=== PATIENT | male | born 1990 | race Hispanic/Latino ===

== ENCOUNTER 2017-02-17 18:54 | Emergency (ER) | payer SELFPAY ==
[2017-02-17 18:55] VITALS: BMI 23.5
[2017-02-17 18:57] VITALS: BP 136/82; PULSE 84; RESP 18; TEMP 97.5; O2SAT 98
--- NOTE | 2017-02-17 19:57 | ED PDOC ---
HPI: Psych/Substance Abuse Time Seen by Provider: 02/17/17 18:57 Chief Complaint (Nursing): Medical Clearance Chief Complaint (Provider): Clearance for incarceration History Per: Patient, Other Additional Complaint(s): 26 yo male, no PMH (on chart review Pt has a PMH of Asthma and Schizophrenia), presents to ED for in order to undergo medical and psychiatric clearance prior to incarceration. Pt offers no physical complaints. no homicidal or suicidal ideations.Denies alcohol or drug use. Past Medical History Reviewed: Historical Data, Nursing Documentation, Vital Signs Vital Signs: Last Vital Signs Temp 97.5 F L 02/17/17 18:55 Pulse 84 02/17/17 18:55 Resp 18 02/17/17 18:55 BP 136/82 02/17/17 18:55 Pulse Ox 98 02/17/17 18:55 - Medical History PMH: Asthma, Depression, Paranoia, Schizophrenia Denies: Diabetes, Hepatitis, HIV, HTN, Chronic Kidney Disease, Seizures, Sexually Transmitted Disease - Family History Family History: States: Unknown Family Hx - Immunization History Hx Tetanus Toxoid Vaccination: No Hx Influenza Vaccination: No Hx Pneumococcal Vaccination: No - Home Medications Home Medications: Ambulatory Orders Medication Instructions Recorded Benztropine [Cogentin] 1 mg PO QPM #30 tab 02/17/16 risperiDONE [RisperDAL Tab] 3 mg PO QPM #30 tab 02/17/16 - Allergies Allergies/Adverse Reactions: Allergies Allergy/AdvReac Type Severity Reaction Status Date / Time shrimp Allergy Verified 02/06/16 20:47 Review of Systems ROS Statement: Except As Marked, All Systems Reviewed And Found Negative () Physical Exam - Reviewed Nursing Documentation Reviewed: Yes Vital Signs Reviewed: Yes - Physical Exam Appears: Positive for: Well, Non-toxic, No Acute Distress Head Exam: Positive for: ATRAUMATIC, NORMAL INSPECTION, NORMOCEPHALIC Skin: Positive for: Normal Color, Warm, DRY Eye Exam: Positive for: EOMI, Normal appearance, PERRL ENT: Positive for: Normal ENT Inspection Neck: Positive for: Normal, Painless ROM Cardiovascular/Chest: Positive for: Regular Rate, Rhythm Respiratory: Positive for: CNT, Normal Breath Sounds Gastrointestinal/Abdominal: Positive for: Normal Exam, Bowel Sounds, Soft Back: Positive for: Normal Inspection Extremity: Positive for: Normal ROM Neurologic/Psych: Positive for: Alert, Oriented - ECG O2 Sat by Pulse Oximetry: 98 Medical Decision Making Medical Decision Making: Crisis made aware- underwent evaluation. see note. Disposition - Clinical Impression Clinical Impression: Medical clearance for incarceration - Patient ED Disposition Is Patient to be Admitted: No - Disposition Disposition: Routine/Home Disposition Time: 20:42 Condition: STABLE Additional Instructions: Patient is medically and psychiatrically cleared for incarceration Instructions: Normal Exam (ED) Forms: [employer] (Greek) - POA Present On Arrival: None
== END 2017-02-17 20:56 | disposition home or self-care (01) ==
LOC: H.ER 18:54
DX: Z02.89 Encounter for other administrative examinations (principal)

== ENCOUNTER 2017-07-18 08:41 | Emergency (ER) | payer OTHER ==
--- NOTE | 2017-07-18 09:21 | ED PDOC ---
HPI: Psych/Substance Abuse Time Seen by Provider: 07/18/17 09:17 Chief Complaint (Nursing): Psychiatric Evaluation History Per: Patient Onset/Duration Of Symptoms: Days (2) Current Symptoms Are (Timing): Still Present Suicide/Self Injury Attempted (Context): None Modifying Factor(s): None Severity: Moderate Associated Symptoms: Depression, Suicidal Thoughts, Suicidal Plan Additional Complaint(s): Hearing voices telling him to kill himself plan to jump in front of bus. Sxs x 2 days. Not taking meds. Past Medical History Vital Signs: Last Vital Signs Temp 97 F L 07/18/17 08:54 Pulse 75 07/18/17 08:54 Resp 16 07/18/17 08:54 BP 122/81 07/18/17 08:54 Pulse Ox 99 07/18/17 08:54 - Medical History PMH: Schizophrenia - Family History Family History: States: Unknown Family Hx - Immunization History Hx Tetanus Toxoid Vaccination: No Hx Influenza Vaccination: No Hx Pneumococcal Vaccination: No - Allergies Allergies/Adverse Reactions: Allergies Allergy/AdvReac Type Severity Reaction Status Date / Time No Known Allergies Allergy Verified 07/18/17 08:54 Review of Systems ROS Statement: Except As Marked, All Systems Reviewed And Found Negative Psych: Positive for: Depression, Suicidal ideation Physical Exam - Reviewed Nursing Documentation Reviewed: Yes Vital Signs Reviewed: Yes - Physical Exam Appears: Positive for: Non-toxic, No Acute Distress Head Exam: Positive for: ATRAUMATIC, NORMAL INSPECTION, NORMOCEPHALIC Skin: Positive for: Normal Color, Warm, DRY Eye Exam: Positive for: EOMI, Normal appearance, PERRL ENT: Positive for: Normal ENT Inspection Neck: Positive for: Normal, Painless ROM Cardiovascular/Chest: Positive for: Regular Rate, Rhythm Respiratory: Positive for: CNT, Normal Breath Sounds Gastrointestinal/Abdominal: Positive for: Normal Exam, Bowel Sounds, Soft Back: Positive for: Normal Inspection Extremity: Positive for: Normal ROM Neurologic/Psych: Positive for: Alert, Oriented - Laboratory Results Result Diagrams: 07/18/17 09:40 07/18/17 09:40 - ECG O2 Sat by Pulse Oximetry: 99 Medical Decision Making Medical Decision Making: Evaluated by Crisis and discussed with psychiatry. They do not believe that pt is suicidal at present. Disposition - Clinical Impression Clinical Impression: Schizophrenia - Patient ED Disposition Is Patient to be Admitted: No - Disposition [facility]errals: [facility] [Outside] Disposition: Routine/Home Disposition Time: 11:07 Condition: FAIR Instructions: Schizophrenia Forms: [employer] ([place])
[2017-07-18 09:57] LABS: BASO % 0.7 % (0.0-2.0); EOS # 0.1 K/uL (0.0-0.7); EOS % 2.3 % (0.0-4.0); HEMOGLOBIN 13.9 g/dL (12.0-18.0); LYMPH # 1.8 K/uL (1.0-4.3); LYMPH % 31.6 % (20.0-40.0); MEAN CELL VOLUME 87.5 fl (80.0-94.0); MEAN CORPUSCULAR HEMOGLOBIN 29.3 pg (27.0-31.0); MEAN CORPUSCULAR HGB CONC 33.5 g/dL (33.0-37.0); MEAN PLATELET VOLUME 9.4 fl (7.2-11.7); MONO # 0.4 K/uL (0.0-0.8); NEUT # 3.2 K/uL (1.8-7.0); NEUT % 57.4 % (50.0-75.0); NRBC % 0.1 % (0.0-0.0); RBC 4.76 Mil/uL (4.40-5.90); RED CELL DISTRIBUTION WIDTH 13.2 % (11.5-14.5); WHITE BLOOD COUNT 5.6 K/uL (4.8-10.8)
[2017-07-18 10:12] LABS: ALB/GLOB RATIO 1.3 (1.0-2.1); ALBUMIN 4.3 g/dL (3.5-5.0); ALT/SGPT 28 U/L (21-72); AST/SGOT 17 U/L (17-59); BLOOD UREA NITROGEN 15 mg/dl (9-20); CALCIUM 9.2 mg/dL (8.4-10.2); GFR AFRICAN-AMERICAN > 60; GFR NON-AFRICAN AMERICAN > 60
--- NOTE | 2017-07-18 10:24 | RAD ---
HISTORY: cough COMPARISON: No prior. FINDINGS: LUNGS: No acute infiltrate identified bilaterally. Limited elevation left hemidiaphragm is noted. PLEURA: No significant pleural effusion identified, no pneumothorax apparent. CARDIOVASCULAR: Normal. OSSEOUS STRUCTURES: No significant abnormalities. VISUALIZED UPPER ABDOMEN: Normal. OTHER FINDINGS: None. IMPRESSION: No acute infiltrate, pleural effusion or pneumothorax bilaterally. Limited elevation left hemidiaphragm noted.
[2017-07-18 11:14] VITALS: BP 125/68; PULSE 82; RESP 18; TEMP 98; O2SAT 100
--- NOTE | 2017-07-18 14:25 | CARD ---
APPROVED REPORT EKG Measurement Heart [id number] <Conclusion> Sinus bradycardia Otherwise normal ECG
== END 2017-07-18 11:21 | disposition home or self-care (01) ==
LOC: EDBD 08:41 → H.ER 08:41 → MERGE 08:41 → H.ER 11:21
DX: F20.9 Schizophrenia, unspecified (principal)

== ENCOUNTER 2017-07-22 07:19 | Inpatient (IN) | payer MEDICAID, OTHER ==
[2017-07-22 07:37] VITALS: BMI 30.9
--- NOTE | 2017-07-22 07:39 | ED PDOC ---
HPI: Psych/Substance Abuse Time Seen by Provider: 07/22/17 07:24 Chief Complaint (Nursing): Psychiatric Evaluation History Per: Patient Onset/Duration Of Symptoms: Days (3) Current Symptoms Are (Timing): Still Present Suicide/Self Injury Attempted (Context): None Modifying Factor(s): None Severity: Mild Associated Symptoms: Suicidal Thoughts Additional Complaint(s): Hearing voices telling him to kill himself. Seen here 4 days ago with plan then to jump in front of bus. Past Medical History - Medical History PMH: Asthma, Depression, Paranoia, Schizophrenia Denies: Arthritis, Diabetes, Fractures, Hepatitis, HIV, HTN, Hyperthyroidism , Hypothyroidism, Osteoporosis, Chronic Kidney Disease, Rheumatoid Arthritis, Seizures, Sexually Transmitted Disease - Family History Family History: States: Unknown Family Hx - Immunization History Hx Tetanus Toxoid Vaccination: No Hx Influenza Vaccination: No Hx Pneumococcal Vaccination: No - Home Medications Home Medications: Ambulatory Orders Medication Instructions Recorded Benztropine [Cogentin] 1 mg PO QPM #30 tab 02/17/16 risperiDONE [RisperDAL Tab] 3 mg PO QPM #30 tab 02/17/16 Paliperidone Palmitate [Invega 234 mg IM ONCE #1 syr 07/04/17 Sustenna] Benztropine [Cogentin] 1 mg PO BID #60 tab 07/17/17 Escitalopram [Lexapro] 20 mg PO DAILY #30 tab 07/17/17 Levothyroxine [Synthroid] 50 mcg PO DAILY@0630 #30 tab 07/17/17 Mirtazapine [Remeron] 30 mg PO HS #30 tab 07/17/17 fluPHENAZine [Prolixin] 10 mg PO BID #60 tab 07/17/17 - Allergies Allergies/Adverse Reactions: Allergies Allergy/AdvReac Type Severity Reaction Status Date / Time shrimp Allergy Verified 06/23/17 22:26 Review of Systems ROS Statement: Except As Marked, All Systems Reviewed And Found Negative Psych: Positive for: Depression, Suicidal ideation Physical Exam - Reviewed Nursing Documentation Reviewed: Yes Vital Signs Reviewed: Yes - Physical Exam Appears: Positive for: Non-toxic, No Acute Distress Head Exam: Positive for: ATRAUMATIC, NORMAL INSPECTION, NORMOCEPHALIC Skin: Positive for: Normal Color, Warm, DRY Eye Exam: Positive for: EOMI, Normal appearance, PERRL ENT: Positive for: Normal ENT Inspection Neck: Positive for: Normal, Painless ROM Cardiovascular/Chest: Positive for: Regular Rate, Rhythm Respiratory: Positive for: CNT, Normal Breath Sounds Gastrointestinal/Abdominal: Positive for: Normal Exam, Bowel Sounds, Soft Back: Positive for: Normal Inspection Extremity: Positive for: Normal ROM Neurologic/Psych: Positive for: Alert, Oriented Medical Decision Making Medical Decision Making: Medically stable for psychiatric admission Disposition - Clinical Impression Clinical Impression: Schizophrenia - Patient ED Disposition Is Patient to be Admitted: Yes - Disposition Disposition Time: 08:49 Condition: FAIR Forms: [employer] (Spanish) - Pt Status Changed To: Hospital Disposition Of: Inpatient - Admit Certification Admit to Inpatient:: After my assessment, the patient will require hospitalization for at least two midnights. This is because of the severity of symptoms shown, intensity of services needed, and/or the medical risk in this patient being treated as an outpatient. - POA Present On Arrival: None
[2017-07-22 07:40] VITALS: O2SAT 98
[2017-07-22 09:56] LABS: BARBITURATES, UR NEGATIVE (NEGATIVE); BENZODIAZEPINES, UR NEGATIVE (NEGATIVE); OPIATES, UR NEGATIVE (NEGATIVE); PHENCYCLIDINE, UR NEGATIVE (NEGATIVE)
[2017-07-22] MEDS ORDERED: DiphenhydrAMINE 50 mg/ml Inj IM PRN (11:35)
[2017-07-22] MEDS ORDERED: Alum-Mag Hydrox-Simethicone Susp (30 mL) PO PRN (11:35)
[2017-07-22] MEDS ORDERED: Magnesium Hydroxide Susp 30 ml UD PO PRN (11:35)
--- NOTE | 2017-07-22 11:38 | PCM.BM ---
Treatment Plan Problems - Problems identified on initial assessmt Problem 1 Date Initiated: 07/22/17 Time Initiated: 11:39 Assessment reference: NA Status: Active medication nonadherence Date Initiated: 07/22/17 Time Initiated: 11:53 Assessment reference: NA Status: Active Problem 2 Date Initiated: 07/22/17 Assessment reference: NA Status: Active command/auditory hallucinations Date Initiated: 07/22/17 Assessment reference: NA Status: Active Treatment assets and liabiliti Patient Assests: adapts well, cooperative, resourceful, self-reliant, ADL independent, negotiates basic needs Patient Liabilities: live alone, financial problems, poor support system - Milieu Protocol Maintain good personal hygiene: daily Encourage regular showers, daily Remind patient to perform daily oral care, other Assist patient to perform ADL's Conduct patient checks and document Observation sheet: Q15 minutes Maintain personal safety: every shift Educate patient to report safety concerns to staff, every shift Monitor environment for contraband/sharps Medication safety: Monitor for expected outcome, potential side effects: every shift, Assess barriers to learning: every shift, Assess readiness for medication education: every shift
--- NOTE | 2017-07-22 11:47 | PCM.PSYCH ---
Initial Psychiatric Evaluation - Initial Psychiatric Evaluation Type of Admission: Voluntary Legal Status: Capacity Chief Complaint (in patient's own words): "I was having suicidal thoughts." Patient's Reaction to Hospitalization: HPI: 26 year old male self referred to this ED secondary to command auditory hallucinations and suicidal ideations with a plan to bang his head until he becomes unconscious. Patient also reports that if he had access to a weapon, he would use it to harm himself. He reports CAH to harm himself. No VH/HI/paranoia/delusions. Pt was recently admitted to [facility] from 06/24 -07/17, but was not complaint with medications after discharge. He reports feeling anxious and depressed. He reports poor sleep and normal appetite. PPHx: Pt has multiple admissions in [facility] and [facility]. Last admission was in [facility] from 06/24/2017-07/17/2017 Pt currently noncompliant with medications. Pt was d/c from [facility] with a prescription for Invega Sustenna 234 mg IM, Congentin 1mg PO BID, Lexapro 20mg PO Daily, Prolixin 10mg PO BID, Synthroid 50mg mg PO Daily, Remeron 30mg PO HS PMH: asthma (last attack in 1999), hyperthyroidism, Herpes (diagnosed in 2012) PSH: tonsillectomy at age 2-3 (no complications) Family History: no known history of heart disease, DM, HTN; no family history of mental illness Allergies: Denies drug allergies; has allergy to shrimp Social History: currently homeless (lives w/ a "friend" he will not provide contact info for); denies drugs/etoh/cig use. Current Medications: Active Medications Generic Name Dose Route Start Last Admin Trade Name Freq PRN Reason Stop Dose Admin Acetaminophen 650 mg 07/22/17 11:35 Tylenol 325mg Tab PO Q4 PRN Pain, moderate (4-7) Al Hydrox/Mg Hydrox/Simethicone 30 ml 07/22/17 11:35 Maalox Plus 30 Ml PO Q4 PRN Dyspepsia Benztropine Mesylate 1 mg 07/22/17 11:40 Cogentin PO BID DIOGENES Diphenhydramine HCl 50 mg 07/22/17 11:35 Benadryl IM Q6 PRN Extrapyramidal S/S Unable PO Diphenhydramine HCl 50 mg 07/22/17 11:35 Benadryl PO Q6 PRN Extrapyramidal Symptoms Escitalopram Oxalate 20 mg 07/22/17 11:45 Lexapro PO DAILY [facility] Fluphenazine HCl 10 mg 07/22/17 11:40 Prolixin PO BID [facility] Haloperidol 5 mg 07/22/17 11:35 Haldol PO Q4 PRN Agitation Haloperidol Lactate 5 mg 07/22/17 11:35 Haldol IM Q4 PRN Agitation, Unable to Take PO Levothyroxine Sodium 50 mcg 07/22/17 11:41 Synthroid PO DAILY@0630 [facility] Lorazepam 2 mg 07/22/17 11:35 Ativan IM Q4 PRN Anxiety/Agitation,Unable PO Lorazepam 2 mg 07/22/17 11:35 Ativan PO Q4 PRN Anxiety/Agitation Magnesium Hydroxide 30 ml 07/22/17 11:35 Milk Of Magnesia PO HS PRN Constipation Mirtazapine 30 mg 07/22/17 22:00 Remeron PO HS [facility] Past Psychiatric History - Past Psychiatric History Previous Treatment History: Inpatient Pertinent Medical Hx (Current Medical&Sleep Prob, Allergies): Allergies Allergy/AdvReac Type Severity Reaction Status Date / Time shrimp Allergy Verified 06/23/17 22:26 Benztropine [Cogentin] 1 mg PO QPM #30 tab 02/17/16 risperiDONE [RisperDAL Tab] 3 mg PO QPM #30 tab 02/17/16 Paliperidone Palmitate [Invega Sustenna] 234 mg IM ONCE #1 syr 07/04/17 Benztropine [Cogentin] 1 mg PO BID #60 tab 07/17/17 Escitalopram [Lexapro] 20 mg PO DAILY #30 tab 07/17/17 Levothyroxine [Synthroid] 50 mcg PO DAILY@0630 #30 tab 07/17/17 Mirtazapine [Remeron] 30 mg PO HS #30 tab 07/17/17 fluPHENAZine [Prolixin] 10 mg PO BID #60 tab 07/17/17 Review of Systems - Psychiatric Psychiatric: As Per HPI, Abnormal Sleep Pattern, Anhedonia, Anxiety, Auditory Hallucinations, Behavioral Changes, Depression, Difficulty Concentrating, Hallucinations, Hopelessness, Suicidal Ideation Mental Status Examination - Personal Presentation Personal Presentation: Looks stated age - Affect Affect: Constricted - Motor Activity Motor Activity: Calm - Reliability in Providing Information Reliability in Providing Information: Fair - Speech Speech: Organized, Coherent - Mood Mood: Depressed, Anxious - Formal Thought Process Formal Thought Process: Hallucinations - Hallucinations/Delusions Hallucinations: Auditory - Obsessions/Compulsions Obsessions: No Compulsions: No - Cognitive Functions Orientation: Person, Place, Situation, Time Sensorium: Alert Attention/Concentration: Attentive Estimate of Intelligence: Average Judgement: Intact, as evidence by: Insight regarding need for hospitalization Memory: Recent intact, as evidence by: Ability to recall events of the day, Remote intact, as evidenced by: Abilit to recall sig. life events, Remote intact , as evidenced by: Ability to recall historical events - Risk Risk: Suicidal, Diminished functioning - Strength & Assets Inventory Strength & Assets Inventory: Cooperative - Limitations Limitations: Other (Poverty, poor social support) DSM 5 DX - DSM 5 DSM 5 Diagnosis: Schizoaffective Disorder - Recommended/Plan of Treatment Treatment Recommendations and Plan of Treatment: Schizoaffective Disorder -Admit to psychiatry unit -No 1:1 indicated at this time, patient is able to contract for safety -Restart Lexapro, Cogentin, Prolixin, Remeron -Medicine consult -Individual and group therapy -Psychoeducation Projected ELOS: 5-7 days Discharge Plan and Discharge Criteria: Discharge when patient is psychiatrically stable - Smoking Cessation Smoking Cessation Initiated: No Reason for not providing: Not indicated
[2017-07-22] MEDS: Levothyroxine 50 MCG TAB PO SCH (14:49)
--- NOTE | 2017-07-22 15:33 | CP.PCM.CON ---
History of Present Illness - History of Present Illness History of Present Illness: 26 yo male with history of Asthma and Hypothyroidism admitted to psyche unit because of suicidal ideation. Patient was recently discharged from [facility] psyche unit on 07/17/2017 after staying for 33 days managed for the same complaint. Review of Systems - Review of Systems All systems: reviewed and no additional remarkable complaints except (aside from those mentioned above, 14 point system review were negative by me) Past Patient History - Infectious Disease Hx of Infectious Diseases: None - Tetanus Immunizations Tetanus Immunization: Unknown - Past Social History Smoking Status: Never Smoked Alcohol: None Drugs: Denies - CARDIAC Hx Hypertension: No - PULMONARY Hx Asthma: Yes - NEUROLOGICAL Hx Seizures: No - HEENT Hx HEENT Problems: No Hx Cataracts: No Hx Deafness: No Hx Difficulty Chewing: No Hx Epistaxis: No Hx Glaucoma: No Hx Macular Degeneration: No - RENAL Hx Chronic Kidney Disease: No - ENDOCRINE/METABOLIC Hx Hyperthyroidism: No Hx Hypothyroidism: Yes (on Levothyroxine) - HEMATOLOGICAL/ONCOLOGICAL Hx Human Immunodeficiency Virus (HIV): No - INTEGUMENTARY Hx Dermatological Problems: No Hx Basil Cell: No Hx Bob: No Hx Cellulitis: No Hx Eczema: No Hx Melanoma: No Hx Psoriasis: No Hx Squamous Cell: No - MUSCULOSKELETAL/RHEUMATOLOGICAL Hx Arthritis: No Hx Fractures: No Hx Osteoporosis: No Hx Rheumatoid Arthritis: No - GASTROINTESTINAL Hx Gastrointestinal Disorders: No Hx Colostomy: No Hx Gastroesophageal Reflux: No Hx Ileostomy: No Hx Liver Failure: No HX Swallowing Problems: No Hx Ulcer: No - GENITOURINARY/GYNECOLOGICAL Hx Sexually Transmitted Disorders: No - PSYCHIATRIC Hx Anxiety: Yes Hx Schizophrenia: Yes Hx Substance Use: Yes (mj use in april) - SURGICAL HISTORY Hx Surgeries: No - ANESTHESIA Hx Anesthesia: No Meds Allergies/Adverse Reactions: Allergies Allergy/AdvReac Type Severity Reaction Status Date / Time shrimp Allergy Verified 06/23/17 22:26 - Medications Medications: Current Medications Acetaminophen (Tylenol 325mg Tab) 650 mg PO Q4 PRN PRN Reason: Pain, moderate (4-7) Al Hydrox/Mg Hydrox/Simethicone (Maalox Plus 30 Ml) 30 ml PO Q4 PRN PRN Reason: Dyspepsia Benztropine Mesylate (Cogentin) 1 mg PO BID DIOGENES Last Admin: 07/22/17 14:49 Dose: 1 mg Diphenhydramine HCl (Benadryl) 50 mg IM Q6 PRN PRN Reason: Extrapyramidal S/S Unable PO Diphenhydramine HCl (Benadryl) 50 mg PO Q6 PRN PRN Reason: Extrapyramidal Symptoms Escitalopram Oxalate (Lexapro) 20 mg PO DAILY [facility] Last Admin: 07/22/17 14:49 Dose: 20 mg Fluphenazine HCl (Prolixin) 10 mg PO BID [facility] Last Admin: 07/22/17 14:49 Dose: 10 mg Haloperidol (Haldol) 5 mg PO Q4 PRN PRN Reason: Agitation Haloperidol Lactate (Haldol) 5 mg IM Q4 PRN PRN Reason: Agitation, Unable to Take PO Levothyroxine Sodium (Synthroid) 50 mcg PO DAILY@0630 [facility] Last Admin: 07/22/17 14:49 Dose: 50 mcg Lorazepam (Ativan) 2 mg IM Q4 PRN PRN Reason: Anxiety/Agitation,Unable PO Lorazepam (Ativan) 2 mg PO Q4 PRN PRN Reason: Anxiety/Agitation Magnesium Hydroxide (Milk Of Magnesia) 30 ml PO HS PRN PRN Reason: Constipation Mirtazapine (Remeron) 30 mg PO HS [facility] Physical Exam - Constitutional Appears: No Acute Distress - Head Exam Head Exam: ATRAUMATIC - Eye Exam Eye Exam: absent: Scleral icterus - ENT Exam ENT Exam: Mucous Membranes Moist - Neck Exam Neck exam: Negative for: Meningismus - Respiratory Exam Respiratory Exam: absent: Rales, Rhonchi, Wheezes, Respiratory Distress - Cardiovascular Exam Cardiovascular Exam: REGULAR RHYTHM, +S1, +S2 - GI/Abdominal Exam GI & Abdominal Exam: Soft. absent: Tenderness - Rectal Exam Rectal Exam: Deferred - Extremities Exam Extremities exam: Negative for: calf tenderness, pedal edema - Neurological Exam Neurological exam: Alert, Oriented x3 - Psychiatric Exam Psychiatric exam: Normal Affect - Skin Skin Exam: Dry, Intact Results - Vital Signs Recent Vital Signs: Last Vital Signs Temp 98 F 07/22/17 10:23 Pulse 86 07/22/17 10:23 Resp 18 07/22/17 11:09 BP 128/80 07/22/17 10:23 Pulse Ox 98 07/22/17 10:23 - Labs Labs: Laboratory Results - last 24 hr 07/22/17 09:15 Urine Opiates Screen Negative Urine Methadone Screen Negative Ur Barbiturates Screen Negative Ur Phencyclidine Scrn Negative Ur Amphetamines Screen Negative U Benzodiazepines Scrn Negative U Oth Cocaine Metabols Negative U Cannabinoids Screen Negative Assessment & Plan (1) Suicidal ideation Status: Acute Comment: psyche is managing (2) Asthma Status: Inactive Comment: asymptomatic (3) Hypothyroidism Status: Chronic Comment: TSH (07/01/17) : 6.21. continue Levothyroxine 50mcg PO daily
[2017-07-23] MEDS: Levothyroxine 50 MCG TAB PO SCH (06:49)
[2017-07-23 08:30] LABS: ALB/GLOB RATIO 1.2 (1.0-2.1); ALT/SGPT 26 U/L (21-72); AST/SGOT 17 U/L (17-59); BLOOD UREA NITROGEN 12 mg/dl (9-20); CALCIUM 9.5 mg/dL (8.4-10.2); GFR AFRICAN-AMERICAN > 60; GFR NON-AFRICAN AMERICAN > 60; HDL CHOLESTEROL 20 MG/DL (30-70)
[2017-07-23 08:41] LABS: BASO % 0.5 % (0.0-2.0); EOS # 0.3 K/uL (0.0-0.7); EOS % 6.2 % (0.0-4.0); HEMOGLOBIN 13.7 g/dL (12.0-18.0); LDL CHOLESTEROL 66 mg/dL (0-129); LYMPH # 2.4 K/uL (1.0-4.3); LYMPH % 50.7 % (20.0-40.0); MEAN CELL VOLUME 87.2 fl (80.0-94.0); MEAN CORPUSCULAR HEMOGLOBIN 29.3 pg (27.0-31.0); MEAN CORPUSCULAR HGB CONC 33.6 g/dL (33.0-37.0); MEAN PLATELET VOLUME 9.1 fl (7.2-11.7); MONO # 0.5 K/uL (0.0-0.8); MONO % 10.2 % (0.0-10.0); NEUT # 1.5 K/uL (1.8-7.0); NEUT % 32.4 % (50.0-75.0); NRBC % 0.3 % (0.0-0.0); RBC 4.68 Mil/uL (4.40-5.90); RED CELL DISTRIBUTION WIDTH 13.2 % (11.5-14.5); WHITE BLOOD COUNT 4.7 K/uL (4.8-10.8)
[2017-07-23 08:45] LABS: T4 8.07 ug/dl (5.5-11.0)
--- NOTE | 2017-07-23 12:24 | PCM.PYCHPN ---
Psychiatric Progress Note - Psychiatric Progress Note Patient seen today, length of contact: Patient evaluated, chart reviewed Patient Chief Complaint: "I was having suicidal thoughts." Problems Identified/Issues Discussed: Patient continues to report feeling depressed w/ intermittent vague suicidal ideation w/o plan or intent. He reports CAH to harm himself, but states that he does not have any current plan to harm himself. No adverse effects to medications reported. Medication Change: No Medical Record Reviewed: Yes Consults ordered or reviewed: Medicine consult Mental Status Examination - Cognitive Function Orientation: Person, Place, Situation, Time Memory: Intact Attention: WNL Concentration: WNL Association: [facility] Fund of Knowledge: [facility] Decription of patient's judgement and insights: Fair I/J - Mood Mood: Depressed, Anxious - Affect Affect: Constricted - Formal Thought Process Formal Thought Process: Hallucinations Psychotic Thoughts and Behaviors: +CAH - Suicidal Ideation Suicidal Ideation: Yes Plan: No current plan/intent - Homicidal Ideation Homicidal Ideation: No Goal/Treatment Plan - Goal/Treatment Plan Need for Continued Stay: Remain at risks for inpatient hospitalization, Severe depression anxiety, Discharge may exacerbated symptoms Progress Toward Problem(s) and Goals/Treatment Plan: Schizoaffective Disorder -No 1:1 indicated at this time, patient is able to contract for safety -Continue Lexapro, Cogentin, Prolixin, Remeron -Medicine consult -Individual and group therapy -Psychoeducation Estimated Date of D/C: 07/28/17
[2017-07-24] MEDS: Levothyroxine 50 MCG TAB PO SCH (06:32)
--- NOTE | 2017-07-24 15:07 | PCM.PYCHPN ---
Psychiatric Progress Note - Psychiatric Progress Note Patient seen today, length of contact: Patient evaluated, chart reviewed Patient Chief Complaint: I am tired , I want to sleep Problems Identified/Issues Discussed: pt seen in bed, anhedonic, poor eye contact, underproductive speech, low energy , spending day in bed , refusing to attend groups, reported continues to feel depressed, reporting non command auditory hallucinations discussed with pt importance of attending groups and participation in treatment pt denied any current suicidal ideations or intent on the unit DSM 5 Symptoms Update: schizoaffective disorder depressed Medication Change: No Medical Record Reviewed: Yes Mental Status Examination - Cognitive Function Orientation: Person, Place, Situation, Time Memory: Intact Attention: Poor Concentration: Poor Association: WNL Fund of Knowledge: WNL Decription of patient's judgement and insights: impaired insight , poor judgement - Mood Mood: Depressed, Anxious - Affect Affect: Constricted - Speech Speech: Soft Additional comments: underproductive - Formal Thought Process Formal Thought Process: Hallucinations Psychotic Thoughts and Behaviors: pt reported non command auditory hallucinations - Suicidal Ideation Suicidal Ideation: No - Homicidal Ideation Homicidal Ideation: No Goal/Treatment Plan - Goal/Treatment Plan Need for Continued Stay: Remain at risks for inpatient hospitalization, Severe depression anxiety, Discharge may exacerbated symptoms Progress Toward Problem(s) and Goals/Treatment Plan: continue with lexapro, remeron and fluphenazine encourage pt to attend groups supportive therapy Estimated Date of D/C: 07/28/17
[2017-07-24 17:20] VITALS: RESP 18
[2017-07-25] MEDS: Levothyroxine 50 MCG TAB PO SCH ×2 (06:26→06:35)
--- NOTE | 2017-07-25 15:22 | PCM.PYCHPN ---
Psychiatric Progress Note - Psychiatric Progress Note Patient seen today, length of contact: Patient evaluated, chart reviewed Patient Chief Complaint: I am tired , Problems Identified/Issues Discussed: pt seen in bed, continues to be not motivated anhedonic, poor eye contact, underproductive speech, low energy , spending day in bed , refusing to attend groups, reported continues to feel depressed, reporting non command auditory hallucinations discussed with pt importance of attending groups and participation in treatment pt denied any current suicidal ideations or intent on the unit DSM 5 Symptoms Update: SCHIZOAFFECTIVE DISORDER Medication Change: No Medical Record Reviewed: Yes Mental Status Examination - Cognitive Function Orientation: Person, Place, Situation, Time Memory: Intact Attention: Poor Concentration: Poor Association: WNL Fund of Knowledge: WNL Decription of patient's judgement and insights: impaired insight , poor judgement - Mood Mood: Depressed, Anxious - Affect Affect: Constricted - Speech Speech: Soft - Formal Thought Process Formal Thought Process: Hallucinations Psychotic Thoughts and Behaviors: pt reported non command auditory hallucinations - Suicidal Ideation Suicidal Ideation: No - Homicidal Ideation Homicidal Ideation: No Goal/Treatment Plan - Goal/Treatment Plan Need for Continued Stay: Remain at risks for inpatient hospitalization, Severe depression anxiety, Discharge may exacerbated symptoms Progress Toward Problem(s) and Goals/Treatment Plan: continue with lexapro, remeron and fluphenazine encourage pt to attend groups supportive therapy Estimated Date of D/C: 07/28/17
[2017-07-26] MEDS: Levothyroxine 50 MCG TAB PO SCH (06:38)
[2017-07-26] MEDS: Risperidone M tab 1 MG PO SCH (16:16)
[2017-07-26] MEDS ORDERED: Risperidone M tab 1 MG PO SCH (22:00)
[2017-07-27] MEDS: Levothyroxine 50 MCG TAB PO SCH (06:36)
[2017-07-27] MEDS: Risperidone M tab 1 MG PO SCH (10:00)
--- NOTE | 2017-07-27 10:43 | PCM.PYCHPN ---
Psychiatric Progress Note - Psychiatric Progress Note Patient seen today, length of contact: Patient evaluated, chart reviewed Patient Chief Complaint: I do not remember why I am here , I do not want to share with anybody Problems Identified/Issues Discussed: pt evaluated with treatment team, guarded, evasive unkempt, no eye contact, underproductive speech, pt refusing to give any information,representing as internally preoccupied, with irritable affect, uncooperative with treatment refusing to attend groups and spending his day in bed discussed with pt the need to change his medications for less sedation , discussed with pt importance of attending groups and participation in treatment pt denied any current command hallucinations , denied suicidal or homicidal ideations Medication Change: No Medical Record Reviewed: Yes Mental Status Examination - Cognitive Function Orientation: Person, Place, Situation, Time Memory: Intact Attention: Poor Concentration: Poor Association: WNL Fund of Knowledge: WNL Decription of patient's judgement and insights: impaired insight , poor judgement - Mood Mood: Depressed, Anxious - Affect Affect: Constricted - Speech Speech: Soft - Formal Thought Process Formal Thought Process: Hallucinations Psychotic Thoughts and Behaviors: pt reported non command auditory hallucinations - Suicidal Ideation Suicidal Ideation: No - Homicidal Ideation Homicidal Ideation: No Goal/Treatment Plan - Goal/Treatment Plan Need for Continued Stay: Remain at risks for inpatient hospitalization, Severe depression anxiety, Discharge may exacerbated symptoms Progress Toward Problem(s) and Goals/Treatment Plan: continue with lexapro, remeron and fluphenazine encourage pt to attend groups supportive therapy Estimated Date of D/C: 07/28/17
--- NOTE | 2017-07-27 12:16 | PCM.PYCHPN ---
Psychiatric Progress Note - Psychiatric Progress Note Patient seen today, length of contact: Patient evaluated, chart reviewed Patient Chief Complaint: I still hear voices telling me to run in front of a car Problems Identified/Issues Discussed: pt seen in bed, poor eye contact, extremely under productive speech, pt guarded , evasive, uncooperative , not attending to his personal hygiene , anhedonic, low interest in any of the treatment activities and refusing to r attend groups , continues to report auditory hallucinations telling him to jump infront of a car , pt however stated he would not hurt himself on the unit denied any plan or intent while in the hospital discussed with pt changing his medications with the positive sedating effect of his current medications, pt agreed pt at current mental status denied any active suicidal intent or plan on the unit DSM 5 Symptoms Update: schizoaffective disorder Medication Change: No Medical Record Reviewed: Yes Mental Status Examination - Cognitive Function Orientation: Person, Place, Situation, Time Memory: Intact Attention: Poor Concentration: Poor Association: WNL Fund of Knowledge: WNL Decription of patient's judgement and insights: impaired insight , poor judgement - Mood Mood: Depressed, Anxious - Affect Affect: Constricted - Speech Speech: Soft - Formal Thought Process Formal Thought Process: Hallucinations Psychotic Thoughts and Behaviors: pt reported non command auditory hallucinations - Suicidal Ideation Suicidal Ideation: No - Homicidal Ideation Homicidal Ideation: No Goal/Treatment Plan - Goal/Treatment Plan Need for Continued Stay: Remain at risks for inpatient hospitalization, Severe depression anxiety, Discharge may exacerbated symptoms Progress Toward Problem(s) and Goals/Treatment Plan: cdiscontinue lexapro, remeron and prolixin gradually will cross titrate with effexor and risperidone encourage pt to attend groups supportive therapy Estimated Date of D/C: 07/31/17
[2017-07-27] MEDS: Risperidone M TAB 2 MG PO SCH (21:03)
[2017-07-28] MEDS: Levothyroxine 50 MCG TAB PO SCH (06:29)
[2017-07-28] MEDS: Risperidone M tab 1 MG PO SCH (09:53)
--- NOTE | 2017-07-28 15:48 | PCM.PYCHPN ---
Psychiatric Progress Note - Psychiatric Progress Note Patient seen today, length of contact: Patient evaluated, chart reviewed Patient Chief Complaint: I am tired and I want to sleep Problems Identified/Issues Discussed: pt seen in bed,continues to have poor eye contact,uncooperative, extremely under productive speech, pt guarded, evasive, , not attending to his personal hygiene , anhedonic, low interest in any of the treatment activities and refusing to attend groups, continues to report non command auditory hallucinations l discussed with pt importance of participation in treatment and attending groups also discussed with him the changes in medications , pt agreed pt at current mental status denied any active suicidal intent or plan on the unit DSM 5 Symptoms Update: schizoaffective disorder Medication Change: No Medical Record Reviewed: Yes Mental Status Examination - Cognitive Function Orientation: Person, Place, Situation, Time Memory: Intact Attention: Poor Concentration: Poor Association: WNL Fund of Knowledge: WNL Decription of patient's judgement and insights: impaired insight , poor judgement - Mood Mood: Depressed, Anxious - Affect Affect: Constricted - Speech Speech: Soft - Formal Thought Process Formal Thought Process: Hallucinations Psychotic Thoughts and Behaviors: pt reported non command auditory hallucinations - Suicidal Ideation Suicidal Ideation: No - Homicidal Ideation Homicidal Ideation: No Goal/Treatment Plan - Goal/Treatment Plan Need for Continued Stay: Remain at risks for inpatient hospitalization, Severe depression anxiety, Discharge may exacerbated symptoms Progress Toward Problem(s) and Goals/Treatment Plan: cdiscontinue lexapro, remeron and prolixin gradually will cross titrate with effexor and risperidone with plan to start risperidone consta encourage pt to attend groups supportive therapy Estimated Date of D/C: 07/31/17
[2017-07-28] MEDS: Risperidone M TAB 2 MG PO SCH (21:10)
[2017-07-29] MEDS: Levothyroxine 50 MCG TAB PO SCH (09:49)
[2017-07-29] MEDS: Risperidone M tab 1 MG PO SCH (09:49)
[2017-07-29] MEDS: Risperidone M TAB 2 MG PO SCH (21:11)
[2017-07-30] MEDS: Levothyroxine 50 MCG TAB PO SCH (06:49)
[2017-07-30] MEDS: Risperidone M tab 1 MG PO SCH (11:17)
--- NOTE | 2017-07-30 16:32 | PCM.PYCHPN ---
Psychiatric Progress Note - Psychiatric Progress Note Patient seen today, length of contact: Patient evaluated, chart reviewed Patient Chief Complaint: pt has remained delusional and paranoid and continues to hallucinate and remains with poor insight and poor judgement and need further stabilization Medication Change: No Medical Record Reviewed: Yes Mental Status Examination - Cognitive Function Orientation: Person, Place, Situation, Time Memory: Intact Attention: Poor Concentration: Poor Association: WNL Fund of Knowledge: WNL - Mood Mood: Depressed, Anxious - Affect Affect: Constricted - Speech Speech: Soft - Formal Thought Process Formal Thought Process: Hallucinations - Suicidal Ideation Suicidal Ideation: No - Homicidal Ideation Homicidal Ideation: No Goal/Treatment Plan - Goal/Treatment Plan Need for Continued Stay: Remain at risks for inpatient hospitalization, Severe depression anxiety, Discharge may exacerbated symptoms Progress Toward Problem(s) and Goals/Treatment Plan: will continue to stabilize the pt by further adjusting the meds and engage pt in therapy and groups. Estimated Date of D/C: 07/31/17
[2017-07-30] MEDS: Risperidone M TAB 2 MG PO SCH (21:07)
[2017-07-31] MEDS: Levothyroxine 50 MCG TAB PO SCH (06:49)
--- NOTE | 2017-07-31 08:43 | PN ---
PSYCHIATRIC FOLLOWUP PROGRESS NOTE DATE: 07/30/2017 SUBJECTIVE: The patient has been seen today for medication . The patient has a significant history of schizoaffective disorder and was admitted because of psychotic decompensation. The patient has remained very paranoid, and responding to hallucination. The patient remains with very poor insight and poor judgement regarding his psychotic symptoms and the patient still needs further stabilization at this time. The patient denies any side effects to the medication. The patient has poor insight and poor judgement at this time. DIAGNOSTIC IMPRESSION: Schizoaffective disorder of bipolar type. PLAN OF TREATMENT: The plan of treatment is to continue the current regimen of the medications. The patient has agreed to the plan. The patient has been compliant with the medication and not reported any issues regarding the compliant of . We will continue the current regimen of medications and we will continue to engage the patient in therapy and groups for further management. The patient is currently prescribed Risperdal 3 mg at bedtime and Effexor for depression and Risperdal for psychosis. The patient is not having any side effects. We will continue the current medication regimen to stabilize the patient and engage the patient in therapy and groups for further management. Once the patient is stabilized, we will initiate planning. Trip Sanz MD
--- NOTE | 2017-07-31 11:53 | PCM.PYCHPN ---
Psychiatric Progress Note - Psychiatric Progress Note Patient seen today, length of contact: Patient evaluated, chart reviewed Patient Chief Complaint: I am tired I want to sleep Problems Identified/Issues Discussed: pt seen in bed,continues to have poor eye contact,uncooperative, disheveled, not attending to personal hygiene, refusing to participate in treatment or attend any groups, extremely under productive speech, pt guarded, evasive, , obseved by staff at times talking to self and internally preoccupied , pt continues to report non command auditory hallucinations pt has very poor insight into his illness and poor judgemnent, as pt continues to be harrassing an ex girl friend and calling her repeatedly violating a restraining order, pt continues to report passive suicidal ideations without active plan or intent on the unit DSM 5 Symptoms Update: schizoaffective disorder Medication Change: No Medical Record Reviewed: Yes Mental Status Examination - Cognitive Function Orientation: Person, Place, Situation, Time Memory: Intact Attention: Poor Concentration: Poor Association: WNL Fund of Knowledge: WNL - Mood Mood: Depressed, Anxious - Affect Affect: Constricted - Speech Speech: Soft - Formal Thought Process Formal Thought Process: Hallucinations Psychotic Thoughts and Behaviors: pt internally preoccupied observed responding to internal stimuli, denied any current command hallucinations - Suicidal Ideation Suicidal Ideation: No - Homicidal Ideation Homicidal Ideation: No Goal/Treatment Plan - Goal/Treatment Plan Need for Continued Stay: Remain at risks for inpatient hospitalization, Severe depression anxiety, Discharge may exacerbated symptoms Progress Toward Problem(s) and Goals/Treatment Plan: pt continues to refuse to participate in treatment spending all day in bed , internally preoccupied and not attending to personal hygiene pt continues to be danger to others, breaking a restraining order towards ex girl friend, pt at current mental status will be referred to screening services as he needs higher level of care than voluntary setting to participate in treatment and for further stabilization Estimated Date of D/C: 07/31/17
[2017-07-31] MEDS: Risperidone M tab 1 MG PO SCH (17:11)
[2017-07-31 18:08] LABS: BASO % 0.8 % (0.0-2.0); EOS # 0.2 K/uL (0.0-0.7); HEMOGLOBIN 14.4 g/dL (12.0-18.0); LYMPH # 1.8 K/uL (1.0-4.3); LYMPH % 44.3 % (20.0-40.0); MEAN CELL VOLUME 88.3 fl (80.0-94.0); MEAN CORPUSCULAR HEMOGLOBIN 29.4 pg (27.0-31.0); MEAN CORPUSCULAR HGB CONC 33.3 g/dL (33.0-37.0); MEAN PLATELET VOLUME 9.3 fl (7.2-11.7); MONO # 0.3 K/uL (0.0-0.8); MONO % 6.9 % (0.0-10.0); NEUT # 1.8 K/uL (1.8-7.0); NRBC % 0.1 % (0.0-0.0); RBC 4.91 Mil/uL (4.40-5.90); RED CELL DISTRIBUTION WIDTH 13.4 % (11.5-14.5); WHITE BLOOD COUNT 4.1 K/uL (4.8-10.8)
[2017-07-31 18:17] LABS: ALB/GLOB RATIO 1.3 (1.0-2.1); ALBUMIN 4.4 g/dL (3.5-5.0); ALT/SGPT 51 U/L (21-72); AST/SGOT 24 U/L (17-59); BLOOD UREA NITROGEN 15 mg/dl (9-20); CALCIUM 9.3 mg/dL (8.4-10.2); GFR AFRICAN-AMERICAN > 60; GFR NON-AFRICAN AMERICAN > 60
[2017-07-31 19:07] LABS: URINE BILIRUBIN NEGATIVE (NEGATIVE); URINE BLOOD NEGATIVE (NEGATIVE); URINE CLARITY CLEAR (Clear); URINE COLOR COLORLESS (YELLOW); URINE GLUCOSE (UA) NEG (Normal); URINE LEUKOCYTE ESTERASE NEG Leu/uL (Negative); URINE PROTEIN NEGATIVE (NEGATIVE); URINE UROBILINOGEN 0.2-1.0 mg/dL (0.2-1.0)
[2017-07-31] MEDS: Risperidone M TAB 2 MG PO SCH (21:07)
[2017-08-01 09:05] VITALS: TEMP 97.9
[2017-08-01] MEDS: Risperidone M tab 1 MG PO SCH (09:09)
[2017-08-01] MEDS: Levothyroxine 50 MCG TAB PO SCH (09:09)
[2017-08-01] MEDS ORDERED: risperiDONE Consta 37.5 mg/2 ml Syr IM ONE (11:30)
--- NOTE | 2017-08-01 15:59 | PCM.PYCHPN ---
Psychiatric Progress Note - Psychiatric Progress Note Patient seen today, length of contact: Patient evaluated, chart reviewed Patient Chief Complaint: My cousin is trying to help get me a place to live Problems Identified/Issues Discussed: pt seen on the unit, more visible , seen in the hallway, pt was screened for involuntary admission but was declined, discussed with pt starting risperidone consta today, pt agreed pt continues to be unkempt, anhedonic with limited insight denied any current suicidal or homicidal ideations, denied perceptual disturbances DSM 5 Symptoms Update: schizoaffective disorder Medication Change: Yes (start risperidone consta) Medical Record Reviewed: Yes Mental Status Examination - Cognitive Function Orientation: Person, Place, Situation, Time Memory: Intact Attention: Poor Concentration: Poor Association: WNL Fund of Knowledge: WNL - Mood Mood: Depressed, Anxious - Affect Affect: Constricted - Speech Speech: Appropriate - Formal Thought Process Formal Thought Process: Circumstantial Psychotic Thoughts and Behaviors: pt denied any current command hallucinations - Suicidal Ideation Suicidal Ideation: No - Homicidal Ideation Homicidal Ideation: No Goal/Treatment Plan - Goal/Treatment Plan Need for Continued Stay: Remain at risks for inpatient hospitalization, Severe depression anxiety, Discharge may exacerbated symptoms Progress Toward Problem(s) and Goals/Treatment Plan: risperidone consta 37.5mg IM continue with oral risperidone and effexor monitor pt for psychopharmacological effects and side effect profile Estimated Date of D/C: 08/03/17
[2017-08-01] MEDS: Risperidone M TAB 2 MG PO SCH (21:28)
[2017-08-02] MEDS: Levothyroxine 50 MCG TAB PO SCH (06:47)
[2017-08-02] MEDS: Risperidone M TAB 2 MG PO SCH ×2 (09:22→21:40)
--- NOTE | 2017-08-02 13:37 | PCM.PYCHPN ---
Psychiatric Progress Note - Psychiatric Progress Note Patient seen today, length of contact: Patient evaluated, chart reviewed Patient Chief Complaint: I am feeling better Problems Identified/Issues Discussed: pt seen on the unit, more visible , seen with treatment team, reported better mood, presenting with brighter affect pt compliant with medications, no reported side effects, denied any current suicidal or homicidal ideations, denied perceptual disturbances DSM 5 Symptoms Update: schizoaffective disorder Medication Change: No Medical Record Reviewed: Yes Mental Status Examination - Cognitive Function Orientation: Person, Place, Situation, Time Memory: Intact Attention: Poor Concentration: Poor Association: WNL Fund of Knowledge: WNL - Mood Mood: Depressed, Anxious - Affect Affect: Constricted - Speech Speech: Appropriate - Formal Thought Process Formal Thought Process: Circumstantial Psychotic Thoughts and Behaviors: pt denied any current command hallucinations - Suicidal Ideation Suicidal Ideation: No - Homicidal Ideation Homicidal Ideation: No Goal/Treatment Plan - Goal/Treatment Plan Need for Continued Stay: Remain at risks for inpatient hospitalization, Severe depression anxiety, Discharge may exacerbated symptoms Progress Toward Problem(s) and Goals/Treatment Plan: risperidone consta 37.5mg IM last dose 08/01/17 continue with oral risperidone and effexor monitor pt for psychopharmacological effects and side effect profile Estimated Date of D/C: 08/03/17
[2017-08-02 16:53] VITALS: BP 112/69; PULSE 78
[2017-08-03] MEDS: Levothyroxine 50 MCG TAB PO SCH (06:48)
[2017-08-03] MEDS: Risperidone M TAB 2 MG PO SCH (10:17)
--- NOTE | 2017-08-03 11:16 | PCM.PYCHDC ---
Mental Status Examination - Mental Status Examination Orientation: Person, Place, Situation Memory: Intact Mood: Neutral Affect: Broad Speech: Appropriate Attention: WNL Concentration: WNL Association: WNL Fund of Knowledge: WNL Formal Thought Process: No Impairment Description of patient's judgement and insight: partial insight , poor judgement Psychotic Thoughts and Behaviors: pt denied any current command hallucinations Suicidal Ideation: No Current Homicidal Ideation?: No Discharge Summary - Discharge Note Reason for Hospitalization: 26 year old male self referred to this ED secondary to command auditory hallucinations and suicidal ideations with a plan to bang his head until he becomes unconscious. Patient also reports that if he had access to a weapon, he would use it to harm himself. He reports CAH to harm himself. No VH/HI/paranoia/delusions. Pt was recently admitted to [facility] from 06/24 -07/17, but was not complaint with medications after discharge. He reports feeling anxious and depressed. He reports poor sleep and normal appetite. Consultations:: List each consultation separately and include: 1. Reason for request. 2. Findings. 3. Follow-up Summary of Hospital Course include:: 1. Description of specific treatment plan utilized for patients during their course of treatmen. 2. Summarize the time- course for resolution of acute symptoms and/or regressed behaviors. 3. Describe issues identified and worked on during hospitalization. 4. Describe medication utilized. 5. Describe medical problems identified and treated. 6. Reassessment of suicide risk Summary of Hospital Course: pt on admission was started on prolixin which was uptitrated to 20mg daily, pt was also placed on remeron and lexapro pt continued to be depressed anhedonic, refusing to participate in treatment , spending day in bed, not attending groups pt was referred for screening for involuntary admission for continuity of care, pt was declined and found not to meet criteria for involuntary admission medications were changed, with discontinuation of remeron and lexapro and starting effexor which was increased to 37.5mg bid risperidone was started after discontinuing prolixin, it was increased to 2mg bid and pt was placed on risperidone consta to ensure compliance, dose of 37.5mg given on 08/01/17 pt gradually presented with brighter affect, reported better mood, on discharge mental status was stable, pt denied any current suicidal or homicidal ideations denied command auditory hallucinations, pt confirmed he has no access to guns, pt is currently homeless social science analyst, contacted insurance case management services, follow up was arranged at [facility], and cousin adiel contacted upon pt request for assisting in housing , pt was also provided with a list of shelters by social science analyst - Final Diagnosis (DSM 5) Condition upon Discharge: FAIR DSM 5: schizoaffective disorder bipolar type Disposition: HOME/ ROUTINE Follow-up Treatment Plan: risperidone consta 37.5mg IM last dose 08/01/17 continue with oral risperidone and effexor monitor pt for psychopharmacological effects and side effect profile Prescriptions/Medication Reconciliation: Benztropine [Cogentin] 1 mg PO DAILY 30 Days #30 tab Benztropine [Cogentin] 1 mg PO HS 30 Days #30 tab Levothyroxine [Synthroid] 50 mcg PO DAILY@0630 30 Days #30 tab risperiDONE [RisperDAL Tab] 2 mg PO BID 30 Days #60 tab Venlafaxine [Effexor] 37.5 mg PO BID 30 Days #60 tab - Antipsychotic Medications Pt discharged on 2 or more routine antipsychotic medications: No
== END 2017-08-03 13:59 | disposition home or self-care (01) | DRG 430 ==
LOC: H.ER 07:19 → H.ERHOLD 08:48 → H.PSYCH 10:32
PROVIDERS: ADMIT Psychiatry & Neurology Psychiatry; ATTEND Psychiatry & Neurology Psychiatry
PROC: GZHZZZZ Group Psychotherapy (ICD-10-PCS; principal; 2017-07-22)
PROC: GZ56ZZZ Individual Psychotherapy, Supportive (ICD-10-PCS; 2017-07-22)
DX: F25.0 Schizoaffective disorder, bipolar type (principal); R45.851 Suicidal ideations; Z59.0 Homelessness; Z91.14 Patient's other noncompliance with medication regimen; E03.9 Hypothyroidism, unspecified; J45.909 Unspecified asthma, uncomplicated; Z91.013 Allergy to seafood